=== PATIENT | male | born 1995 | race African-American/Black ===

== ENCOUNTER 2019-01-25 00:21 | Inpatient (IN) | payer OTHER ==
[~2019-01-25] VITALS: Ht 184.2 cm; Wt 91.6 kg
[2019-01-25] MEDS ORDERED: PIPERACILLIN/TAZ 3.375G PREMIX 50 ML IV ONE (01:30)
[2019-01-25] MEDS ORDERED: KETOROLAC 30MG/ML VIAL IV STA (01:30)
[2019-01-25] MEDS ORDERED: VANCOMYCIN 1 G PREMIX 200 ML IV ONE (01:30)
[2019-01-25 01:47] LABS: CLARITY URINE CLEAR (CLEAR); COLOR URINE YELLOW (YELLOW); KETONES URINE 4+ (NEGATIVE); LEUKOCYTE ESTERASE URINE NEGATIVE (NEGATIVE); NITRITE URINE NEGATIVE (NEGATIVE); OCCULT BLOOD URINE 2+ (NEGATIVE); PROTEIN URINE NEGATIVE (NEGATIVE); SPECIFIC GRAVITY URINE 1.034 (1.005-1.030)
[2019-01-25] MEDS ORDERED: METRONIDAZOLE 500 MG PREMIX 100 ML IV ONE (05:15)
[2019-01-25] MEDS ORDERED: HYDROCODONE/ACETAMINOPHEN 5/325MG TABLET PO STA (05:37)
[2019-01-25 05:55] LABS: BASOPHILS % 0.7 % (0.0-2.0); EOSINOPHILS % 0.8 % (0.0-5.0); HEMATOCRIT. 39.7 % (42.0-52.0); HEMOGLOBIN. 12.9 g/dL (14.0-18.0); LYMPHOCYTES % 23.5 % (20.0-50.0); MEAN CORPUSCULAR HEMOGLOBIN 24.9 pg (28.0-32.0); MEAN CORPUSCULAR VOLUME 76.5 fL (80.0-94.0); MEAN PLATELET VOLUME 7.4 fl (7.4-10.4); MONOCYTES % 9.8 % (2.0-8.0); NEUTROPHILS % 65.2 % (40.0-76.0); PLATELET 212 x1000/uL (130-400); RED BLOOD CELL COUNT 5.18 mill/uL (4.7-6.1); RED CELL DISTRIBUTION WIDTH 14.3 % (11.6-14.6)
[2019-01-25 05:59] LABS: PROTHROMBIN TIME 10.4 sec (9.6-11.0)
[2019-01-25 06:27] LABS: CHLORIDE 105 mEq/L (98-107)
[2019-01-25] MEDS ORDERED: IOHEXOL-300 100 ML BOTTLE ONE (07:37)
[2019-01-25] MEDS ORDERED: KETOROLAC 30MG/ML VIAL IV ONE (09:00)
[2019-01-25] MEDS ORDERED: ACETAMINOPHEN 325MG TABLET PO PRN (12:45)
[2019-01-25] MEDS ORDERED: ONDANSETRON HCL 4MG/2ML INJ IV PRN (12:45)
[2019-01-25] MEDS ORDERED: MAGNESIUM/ALUMINUM HYDROXIDE/SIMETHICONE 30ML UDC PO PRN (12:45)
[2019-01-25] MEDS ORDERED: CLONIDINE 0.1MG TABLET PO PRN (12:45)
[2019-01-25] MEDS ORDERED: DOCUSATE SODIUM 100MG CAPSULE PO PRN (12:45)
[2019-01-25] MEDS ORDERED: MORPHINE SULFATE 2 MG/ML CPJ (NOT FOR IM USE) IV PRN (12:45)
[2019-01-25 13:30] VITALS: BP 122/73
[2019-01-25] MEDS: HYDROCODONE/ACETAMINOPHEN 5/325MG TABLET PO PRN ×3 (14:13→23:49)
[2019-01-25] MEDS: METRONIDAZOLE 500 MG PREMIX 100 ML IV SCH ×2 (14:30→23:14)
[2019-01-25] MEDS ORDERED: LEVOFLOXACIN 500MG PREMIX 100 ML IV SCH (15:00)
[2019-01-25 20:00] VITALS: BP 109/62
[2019-01-26] VITALS: BP 109/60
[2019-01-26 04:00] VITALS: BP 99/51
[2019-01-26] MEDS: METRONIDAZOLE 500 MG PREMIX 100 ML IV SCH ×3 (05:12→20:54)
[2019-01-26] MEDS: HYDROCODONE/ACETAMINOPHEN 5/325MG TABLET PO PRN ×3 (05:28→20:53)
[2019-01-26 07:38] LABS: BASOPHILS % 0.4 % (0.0-2.0); EOSINOPHILS % 0.3 % (0.0-5.0); HEMATOCRIT. 40.3 % (42.0-52.0); LYMPHOCYTES % 10.8 % (20.0-50.0); MEAN CORPUSCULAR HEMOGLOBIN 24.9 pg (28.0-32.0); MEAN CORPUSCULAR VOLUME 77.1 fL (80.0-94.0); MEAN PLATELET VOLUME 7.4 fl (7.4-10.4); MONOCYTES % 7.5 % (2.0-8.0); PLATELET 231 x1000/uL (130-400); RED BLOOD CELL COUNT 5.23 mill/uL (4.7-6.1); RED CELL DISTRIBUTION WIDTH 14.3 % (11.6-14.6)
[2019-01-26 07:43] LABS: CHLORIDE 103 mEq/L (98-107)
[2019-01-26 08:00] VITALS: BP 140/74
[2019-01-26] MEDS ORDERED: LIDOCAINE HCL 1% 20ML VIAL (Pyxis) INJ INFIL NR (10:45)
[2019-01-26] MEDS: HYDROMORPHONE HCL/PF 2MG/ML CPJ IV PRN (12:00)
[2019-01-26] MEDS: LEVOFLOXACIN 500MG PREMIX 100 ML IV SCH (16:59)
[2019-01-26 20:00] VITALS: BP 106/62
[2019-01-27] VITALS (7 sets, daily range): BP systolic 97–132; BP diastolic 52–72
[2019-01-27] MEDS: METRONIDAZOLE 500 MG PREMIX 100 ML IV SCH ×2 (06:21→14:08)
[2019-01-27] MEDS: LEVOFLOXACIN 500MG PREMIX 100 ML IV SCH (11:58)
[2019-01-27] MEDS: HYDROMORPHONE HCL/PF 2MG/ML CPJ IV PRN (16:19)
== END 2019-01-27 18:42 | disposition home or self-care (01) | DRG 580 ==
LOC: ER 00:21 → 6EST 09:52 → EDBEDREQ 09:57 → ENRESERV 10:53 → CANBEDREQ 17:05 → 6EST 01-26 19:58
PROVIDERS: ADMIT Hospitalist; ATTEND Hospitalist
PROC: 0D9Q0ZZ Drainage of Anus, Open Approach (ICD-10-PCS; principal; 2019-01-26)
DX: L03.315 Cellulitis of perineum (principal); K61.2 Anorectal abscess; L02.215 Cutaneous abscess of perineum; K62.89 Other specified diseases of anus and rectum; Z88.5 Allergy status to narcotic agent
CPT/HCPCS: 36415; 71045; 74177; 76870; 81003; 93976; 96374; 99285; J1170; J1885; J1956; J2543; J3370; J3490; Q9967